=== PATIENT | female | born 1970 | race Caucasian/White ===

== ENCOUNTER 2017-01-24 20:29 | Observation (INO) | payer MEDICARE ==
[2017-01-24] MEDS ORDERED: MORPHINE SULFATE 4 MG/ML SYRINGE IV STA (20:37)
[2017-01-24] MEDS ORDERED: SODIUM CHLORIDE 0.9% 1,000 ML IV STA ×2 (20:37)
--- NOTE | 2017-01-24 20:37 | ED ---
General Adult HPI - General Stated complaint: Chest Pain Time Seen by Provider: 01/24/17 20:32 Source: RN notes reviewed, old records reviewed - History of Present Illness Initial comments: This is a 46-year-old female here today for evaluation regards to chest pain. Severe chest pain that she woke up with this morning he has been persistent throughout the day. Patient takes nothing of her chest pain. Patient does have significant cardiac disease history has history of heart attack and stents. Patient states pain feels just like prior heart attack. No recent travel history no sick contacts. Patient is new to the area and has no prior hospitalizations or evaluations here - Related Data Home Medications Medication Instructions Recorded Confirmed Insulin Glargine,Hum.rec.anlog 55 unit SQ BID 01/25/17 01/25/17 [Lantus Solostar] metFORMIN HCL 1,000 mg PO BID 01/25/17 01/25/17 Allergies Allergy/AdvReac Type Severity Reaction Status Date / Time prochlorperazine Allergy Hallucinati Verified 01/25/17 11:59 [From Compazine] ons Sulfa (Sulfonamide Allergy Rash/Hives Verified 01/25/17 11:59 Antibiotics) Review of Systems ROS Statement: Those systems with pertinent positive or pertinent negative responses have been documented in the HPI. ROS Other: All systems not noted in ROS Statement are negative. Past Medical History - Past Family History Mother Additional Family Medical History / Comment(s): Mother at age 64 with Stage4 pancreatic cancer. Father Family Medical History: Diabetes Mellitus General Exam General appearance: alert, in no apparent distress, anxious, in distress, obese Head exam: Present: atraumatic, normocephalic, normal inspection Eye exam: Present: normal appearance, PERRL, EOMI. Absent: scleral icterus, conjunctival injection, periorbital swelling ENT exam: Present: normal exam, mucous membranes moist Neck exam: Present: normal inspection. Absent: tenderness, meningismus, lymphadenopathy Respiratory exam: Present: normal lung sounds bilaterally. Absent: respiratory distress, wheezes, rales, rhonchi, stridor Cardiovascular Exam: Present: normal rhythm, tachycardia, normal heart sounds. Absent: systolic murmur, diastolic murmur, rubs, gallop, clicks GI/Abdominal exam: Present: soft, normal bowel sounds. Absent: distended, tenderness, guarding, rebound, rigid Extremities exam: Present: normal inspection, full ROM, normal capillary refill. Absent: tenderness, pedal edema, joint swelling, calf tenderness Back exam: Present: normal inspection Neurological exam: Present: alert, oriented X3, CN II-XII intact Psychiatric exam: Present: normal affect, normal mood Skin exam: Present: warm, dry, intact, normal color. Absent: rash Course Vital Signs 01/24/17 01/24/17 01/24/17 20:31 21:51 22:24 Temperature 99 F 97.0 F L Pulse Rate 107 H 88 Pulse Rate [ 83 Pulse Oximetery ] Respiratory 20 18 16 Rate Blood Pressure 175/68 113/56 Blood Pressure 157/98 [Right Arm] O2 Sat by Pulse 97 97 99 Oximetry - Reevaluation(s) Reevaluation #1: Patient continuing to have chest pain and asking for pain medication EKG Findings - EKG Comments: EKG Findings:: EKG shows sinus tachycardia rate of 111, PA 150, QRS 78, QTC 462. repeat. EKG shows normal sinus rhythm rate of 87, PA 126, QRS 70, QTC 452 Medical Decision Making - Medical Decision Making 46 female tear with significant history of heart disease and coronary artery disease, patient coming in with chest pain just like prior PA, patient will be admitted for cardiac observation and evaluation, anticoagulation and pain control, currently EKG and troponin are negative - Lab Data Result diagrams: 01/25/17 02:20 01/24/17 20:35 Lab Results 01/24/17 01/24/17 01/24/17 Range/Units 20:35 20:35 20:35 WBC 15.3 H (3.8-10.6) k/uL RBC 4.37 (3.80-5.40) m/uL Hgb 14.9 (11.4-16.0) gm/dL Hct 44.9 (34.0-46.0) % MCV 102.7 H (80.0-100.0) fL MCH 34.2 (25.0-35.0) pg MCHC 33.3 (31.0-37.0) g/dL RDW 14.2 (11.5-15.5) % Plt Count 232 (150-450) k/uL Neutrophils % 60 % Lymphocytes % 30 % Monocytes % 5 % Eosinophils % 3 % Basophils % 1 % Neutrophils # 9.2 H (1.3-7.7) k/uL Lymphocytes # 4.6 (1.0-4.8) k/uL Monocytes # 0.7 (0-1.0) k/uL Eosinophils # 0.4 (0-0.7) k/uL Basophils # 0.1 (0-0.2) k/uL Macrocytosis Slight PT (9.0-12.0) sec INR (<1.2) APTT (22.0-30.0) sec Sodium 142 (137-145) mmol/L Potassium 4.6 (3.5-5.1) mmol/L Chloride 109 H (98-107) mmol/L Carbon Dioxide 22 (22-30) mmol/L Anion Gap 11 mmol/L BUN 12 (7-17) mg/dL Creatinine 0.80 (0.52-1.04) mg/dL Est GFR (MDRD) Af Amer >60 (>60 ml/min/1.73 sqM) Est GFR (MDRD) Non-Af >60 (>60 ml/min/1.73 sqM) Glucose 95 (74-99) mg/dL Plasma Lactic Acid Oliver (0.7-2.0) mmol/L Calcium 9.0 (8.4-10.2) mg/dL Phosphorus 4.3 (2.5-4.5) mg/dL Magnesium 1.6 (1.6-2.3) mg/dL Total Bilirubin 0.6 (0.2-1.3) mg/dL AST 29 (14-36) U/L ALT 21 (9-52) U/L Alkaline Phosphatase 68 (38-126) U/L Total Creatine Kinase 62 (30-135) U/L CK-MB (CK-2) 0.7 (0.0-2.4) ng/mL CK-MB (CK-2) Rel Index 1.1 Troponin I <0.012 (0.000-0.034) ng/mL Total Protein 8.0 (6.3-8.2) g/dL Albumin 4.1 (3.5-5.0) g/dL TSH 0.051 L (0.465-4.680) mIU/L Urine Color Urine Appearance (Clear) Urine pH (5.0-8.0) Ur Specific [place] (1.001-1.035) Urine Protein (Negative) Urine Glucose (UA) (Negative) Urine Ketones (Negative) Urine Blood (Negative) Urine Nitrite (Negative) Urine Bilirubin (Negative) Urine Urobilinogen (<2.0) mg/dL Ur Leukocyte Esterase (Negative) Urine RBC (0-5) /hpf Urine WBC (0-5) /hpf Ur Squamous Epith Cells (0-4) /hpf Urine Mucus (None) /hpf Urine Sperm (None) /hpf 01/24/17 01/24/17 01/24/17 Range/Units 20:35 20:36 21:20 WBC (3.8-10.6) k/uL RBC (3.80-5.40) m/uL Hgb (11.4-16.0) gm/dL Hct (34.0-46.0) % MCV (80.0-100.0) fL MCH (25.0-35.0) pg MCHC (31.0-37.0) g/dL RDW (11.5-15.5) % Plt Count (150-450) k/uL Neutrophils % % Lymphocytes % % Monocytes % % Eosinophils % % Basophils % % Neutrophils # (1.3-7.7) k/uL Lymphocytes # (1.0-4.8) k/uL Monocytes # (0-1.0) k/uL Eosinophils # (0-0.7) k/uL Basophils # (0-0.2) k/uL Macrocytosis PT 10.1 (9.0-12.0) sec INR 1.0 (<1.2) APTT 22.5 (22.0-30.0) sec Sodium (137-145) mmol/L Potassium (3.5-5.1) mmol/L Chloride (98-107) mmol/L Carbon Dioxide (22-30) mmol/L Anion Gap mmol/L BUN (7-17) mg/dL Creatinine (0.52-1.04) mg/dL Est GFR (MDRD) Af Amer (>60 ml/min/1.73 sqM) Est GFR (MDRD) Non-Af (>60 ml/min/1.73 sqM) Glucose (74-99) mg/dL Plasma Lactic Acid Oliver 1.9 (0.7-2.0) mmol/L Calcium (8.4-10.2) mg/dL Phosphorus (2.5-4.5) mg/dL Magnesium (1.6-2.3) mg/dL Total Bilirubin (0.2-1.3) mg/dL AST (14-36) U/L ALT (9-52) U/L Alkaline Phosphatase (38-126) U/L Total Creatine Kinase (30-135) U/L CK-MB (CK-2) (0.0-2.4) ng/mL CK-MB (CK-2) Rel Index Troponin I (0.000-0.034) ng/mL Total Protein (6.3-8.2) g/dL Albumin (3.5-5.0) g/dL TSH (0.465-4.680) mIU/L Urine Color Yellow Urine Appearance Cloudy H (Clear) Urine pH 5.0 (5.0-8.0) Ur Specific [place] 1.008 (1.001-1.035) Urine Protein Negative (Negative) Urine Glucose (UA) Negative (Negative) Urine Ketones Negative (Negative) Urine Blood Trace H (Negative) Urine Nitrite Negative (Negative) Urine Bilirubin Negative (Negative) Urine Urobilinogen <2.0 (<2.0) mg/dL Ur Leukocyte Esterase Moderate H (Negative) Urine RBC 2 (0-5) /hpf Urine WBC 15 H (0-5) /hpf Ur Squamous Epith Cells 4 (0-4) /hpf Urine Mucus Rare H (None) /hpf Urine Sperm Moderate H (None) /hpf - Radiology Data Radiology results: report reviewed (Chest x-ray is negative for acute disease), image reviewed Critical Care Time Critical Care Time: Yes Total Critical Care Time: 31 Disposition Clinical Impression: Chest pain Disposition: ADMITTED IP TO THIS [facility] Condition: Undetermined
[2017-01-24 20:48] LABS: Basophils # (A) 0.1 k/uL (0-0.2); Basophils % (A) 1 %; CH 33.2; CHCM 32.4; Eosinophils # (A) 0.4 k/uL (0-0.7); Eosinophils % (A) 3 %; HCT 44.9 % (34.0-46.0); HDW 2.34; HGB 14.9 gm/dL (11.4-16.0); Luc # (Auto) 0.39; Luc % (Auto) 3; Lymphocytes # (A) 4.6 k/uL (1.0-4.8); Lymphocytes % (A) 30 %; MCH 34.2 pg (25.0-35.0); MCHC 33.3 g/dL (31.0-37.0); MCV 102.7 fL (80.0-100.0); Macrocytosis Slight; Mean Platelet Volume 8.8; Monocytes # (A) 0.7 k/uL (0-1.0); Monocytes % (A) 5 %; Neutrophils # (A) 9.2 k/uL (1.3-7.7); Neutrophils % (A) 60 %; RBC 4.37 m/uL (3.80-5.40); RDW 14.2 % (11.5-15.5); WBC 15.3 k/uL (3.8-10.6); WBC (Perox) 15.56
[2017-01-24 20:58] LABS: Partial Thromboplastin Time 22.5 sec (22.0-30.0); Prothrombin Time 10.1 sec (9.0-12.0)
[2017-01-24 21:05] LABS: ALT 21 U/L (9-52); AST 29 U/L (14-36); Alkaline Phosphatase 68 U/L (38-126); Anion Gap 11 mmol/L; Blood Urea Nitrogen 12 mg/dL (7-17); Carbon Dioxide 22 mmol/L (22-30); Chloride 109 mmol/L (98-107); Glucose 95 mg/dL (74-99); Magnesium 1.6 mg/dL (1.6-2.3); Non-African American GFR(MDRD) >60 (>60 ml/min/1.73 sqM); Phosphorous 4.3 mg/dL (2.5-4.5); Sodium 142 mmol/L (137-145); Total Bilirubin 0.6 mg/dL (0.2-1.3)
[2017-01-24 21:08] LABS: Potassium 4.6 mmol/L (3.5-5.1)
[2017-01-24 21:12] LABS: Creatine Kinase 62 U/L (30-135)
--- NOTE | 2017-01-24 21:12 | XR ---
EXAMINATION TYPE: XR chest 2V DATE OF EXAM: 01/24/2017 COMPARISON: NONE HISTORY: Chest pain weakness TECHNIQUE: Frontal and lateral views of the chest are obtained. FINDINGS: There is no focal air space opacity, pleural effusion, or pneumothorax seen. The cardiac silhouette size is within normal limits. The osseous structures are intact. IMPRESSION: No acute cardiopulmonary process.
[2017-01-24 21:26] LABS: Creatine Kinase MB 0.7 ng/mL (0.0-2.4); Troponin I <0.012 ng/mL (0.000-0.034)
[2017-01-24 21:51] LABS: Appearance,Urine Cloudy (Clear); Bilirubin,Urine Negative (Negative); Glucose,Urine (UA) Negative (Negative); Ketones,Urine Negative (Negative); Leukocyte Esterase,Urine Moderate (Negative); Mucus,Urine Rare /hpf; Nitrite,Urine Negative (Negative); Particle Count 6480; Protein,Urine Negative (Negative); RBC,Urine 2 /hpf (0-5); Specific Gravity,Urine 1.008 (1.001-1.035); Sperm,Urine Moderate /hpf; Squamous Epithelial Cell,Urine 4 /hpf (0-4); UA Billing (MACRO vs. MICRO) MICRO; Urobilinogen,Urine <2.0 mg/dL (<2.0); WBC,Urine 15 /hpf (0-5)
[2017-01-24] MEDS ORDERED: HEPARIN SODIUM,PORCINE 5,000 UNIT/ML 1 ML VIAL IV PRN (22:06)
[2017-01-24] MEDS ORDERED: ASPIRIN 81 MG PO STA (22:06)
[2017-01-24] MEDS ORDERED: HEPARIN SODIUM,PORCINE 5,000 UNIT/ML 1 ML VIAL IV ONE (22:06)
[2017-01-24] MEDS ORDERED: HEPARIN SODIUM,PORCINE/D5W PMX 25,000 UNIT in DEXTROSE/WATER 1 500ML.BAG IV SCH (22:15)
[2017-01-24 23:04] LABS: Glucose,Whole Blood 64 mg/dL (75-99)
[2017-01-24] MEDS: NITROGLYCERIN SL TABS 0.4 MG TAB SUBLINGUAL PRN ×3 (23:25→23:39)
[2017-01-24 23:32] LABS: Glucose,Whole Blood 103 mg/dL (75-99)
[2017-01-24] MEDS: MORPHINE SULFATE 2 MG/ML SYRINGE IV PRN (23:46)
[2017-01-24] MEDS ORDERED: HYDROmorphone 1 MG/ML 1 ML SYRINGE IVP PRN (23:53)
[2017-01-25] MEDS ORDERED: INFLUENZA VACCINE (6 MOS+) 60 MCG/0.5 ML SYRINGE IM ONE (00:36)
[2017-01-25 02:54] LABS: Cholesterol 249 mg/dL (<200); HDL Cholesterol 39 mg/dL (40-60)
[2017-01-25 03:08] LABS: Creatine Kinase 52 U/L (30-135)
[2017-01-25 03:09] LABS: Mean Platelet Volume 8.4
[2017-01-25 03:22] LABS: Creatine Kinase MB 1.6 ng/mL (0.0-2.4); Troponin I <0.012 ng/mL (0.000-0.034)
[2017-01-25] MEDS ORDERED: HYDROmorphone 0.5 MG/0.5 ML SYRINGE IVP PRN (04:05)
[2017-01-25 06:11] LABS: Glucose,Whole Blood 65 mg/dL (75-99)
[2017-01-25 06:29] LABS: Glucose,Whole Blood 65 mg/dL (75-99)
[2017-01-25 06:44] LABS: Glucose,Whole Blood 61 mg/dL (75-99)
[2017-01-25 07:35] LABS: Glucose,Whole Blood 70 mg/dL (75-99)
[2017-01-25 08:34] LABS: Creatine Kinase 44 U/L (30-135)
[2017-01-25 08:48] LABS: Troponin I <0.012 ng/mL (0.000-0.034)
[2017-01-25 08:53] LABS: Creatine Kinase MB 3.2 ng/mL (0.0-2.4)
[2017-01-25] MEDS ORDERED: ASPIRIN 325 MG TAB PO SCH (09:00)
[2017-01-25] MEDS ORDERED: LEVOFLOXACIN 500MG-D5W PMX 500 MG in DEXTROSE/WATER 1 100ML.BAG IVPB SCH (10:00)
[2017-01-25] MEDS: ONDANSETRON 4 MG/2 ML VIAL IVP PRN (10:04)
[2017-01-25] MEDS ORDERED: PANTOPRAZOLE 40 MG/10 ML VIAL IVP SCH (10:30)
--- NOTE | 2017-01-25 11:38 | P.HPIM ---
History of Present Illness This is a 46-year-old female came in with complaints of chest pain sharp in nature radiating across the chest area on and off last for a few minutes 9 x 10 in severity not associated with breathing although patient's d-dimer is negative patient appears to be congested diaphoretic when I evaluated the patient patient denied any shortness of breath fever chills patient is comparing of some nonspecific tingling and numbness in the left side of the body , because of which I'm obtaining a CAT scan of the head. Patient is nauseous has been vomiting when I evaluated the patient patient still has her gallbladder her pain in the chest area does work get worse with food. Patient denied any fever chills patient denied any dysuria patient has a symptomatically bacteriuria the for which patient will not need any antibiotics because of which levofloxacin is being discontinued at this time. Patient had history of coronary artery disease with stents placed in the past. Patient had an EKG which showed some nonspecific ST-T wave changes cardiology evaluated the patient. Review of Systems REVIEW OF SYSTEMS: CONSTITUTIONAL: No fever, no malaise, no fatigue. HEENT: No recent visual problems or hearing problems. Denied any sore throat. CARDIOVASCULAR: No , orthopnea, PND, no palpitations, no syncope. PULMONARY: No shortness of breath, no cough, no hemoptysis. GASTROINTESTINAL: No diarrhea, no nausea, no vomiting, no abdominal pain. Normoactive bowel sounds. NEUROLOGICAL: No headaches, no weakness, HEMATOLOGICAL: Denies any bleeding or petechiae. GENITOURINARY: Denies any burning micturition, frequency, or urgency. MUSCULOSKELETAL/RHEUMATOLOGICAL: Denies any joint pain, swelling, or any muscle pain. ENDOCRINE: Denies any polyuria or polydipsia. The rest of the 14-point review of systems is negative. Past Medical History Past Medical History: Asthma, COPD, Diabetes Mellitus, Hypertension, Myocardial Infarction ([place]), Thyroid Disorder Additional Past Medical History / Comment(s): emphysema, pt states she had thyroid cancer, had thyroid removed - 2010. Last Myocardial Infarction Date:: 2010 History of Any Multi-Drug Resistant Organisms: None Reported Past Surgical History: Appendectomy, Cholecystectomy, Heart Catheterization Additional Past Surgical History / Comment(s): back surgery, heel spur surgery Past Anesthesia/Blood Transfusion Reactions: No Reported Reaction Additional Past Anesthesia/Blood Transfusion Reaction / Comment(s): Pt states she has not had a blood transfusion Past Psychological History: No Psychological Hx Reported Smoking Status: Current every day smoker Past Alcohol Use History: None Reported Past Drug Use History: None Reported - Past Family History Mother Additional Family Medical History / Comment(s): Mother at age 64 with Stage4 pancreatic cancer. Father Family Medical History: Diabetes Mellitus Medications and Allergies Allergies Allergy/AdvReac Type Severity Reaction Status Date / Time prochlorperazine Allergy Hallucinati Verified 01/25/17 00:06 [From Compazine] ons Sulfa (Sulfonamide Allergy Rash/Hives Verified 01/25/17 00:06 Antibiotics) Physical Exam Vitals: Vital Signs Temp Pulse Pulse Resp BP BP Pulse Ox 01/25/17 08:00 96.8 F L 83 16 118/63 93 L 01/25/17 04:00 97.6 F 75 16 113/70 94 L 01/25/17 00:00 83 16 01/24/17 23:45 81 120/71 01/24/17 23:39 83 131/69 01/24/17 23:34 79 122/65 01/24/17 23:25 82 124/74 01/24/17 22:24 97.0 F L 83 16 157/98 99 01/24/17 21:51 88 18 113/56 97 01/24/17 20:31 99 F 107 H 20 175/68 97 Intake and Output 01/24/17 01/25/17 01/25/17 22:59 06:59 14:59 Intake Total 735.333 0 Balance 735.333 0 Intake: Intake, IV Titration 735.333 Amount Heparin Sodium,Porcine/ 135.333 D5w Pmx 25,000 unit In Dextrose/Water 1 500ml. bag @ 20 mls/hr IV .Q24H CYDNEY Rx#:[id number] Sodium Chloride 0.9% 1, 600 000 ml @ 100 mls/hr IV . Q10H STA Rx#:[id number] Oral 0 Other: # Voids 1 Weight 87.543 kg 89 kg PHYSICAL EXAMINATION: GENERAL: The patient is alert and oriented x3, not in any acute distress. Well developed, well nourished. Patient looks unwell and diaphoretic on exam HEENT: Pupils are round and equally reacting to light. EOMI. No scleral icterus. No conjunctival pallor. Normocephalic, atraumatic. No pharyngeal erythema. No thyromegaly. CARDIOVASCULAR: S1 and S2 present. No murmurs, rubs, or gallops. PULMONARY: Chest is clear to auscultation, no wheezing or crackles. ABDOMEN: Soft, nontender, nondistended, normoactive bowel sounds. No palpable organomegaly. MUSCULOSKELETAL: No joint swelling or deformity. EXTREMITIES: No cyanosis, clubbing, or pedal edema. NEUROLOGICAL: Gross neurological examination did not reveal any focal deficits. SKIN: No rashes. Results CBC & Chem 7: 01/25/17 02:20 01/24/17 20:35 Labs: Abnormal Lab Results - Last 24 Hours (Table) 01/24/17 01/24/17 01/24/17 Range/Units 20:35 20:35 21:20 WBC 15.3 H (3.8-10.6) k/uL MCV 102.7 H (80.0-100.0) fL Neutrophils # 9.2 H (1.3-7.7) k/uL Chloride 109 H (98-107) mmol/L POC Glucose (mg/dL) (75-99) mg/dL CK-MB (CK-2) (0.0-2.4) ng/mL Triglycerides (<150) mg/dL Cholesterol (<200) mg/dL LDL Cholesterol, Calc (0-99) mg/dL HDL Cholesterol (40-60) mg/dL TSH 0.051 L (0.465-4.680) mIU/L Urine Appearance Cloudy H (Clear) Urine Blood Trace H (Negative) Ur Leukocyte Esterase Moderate H (Negative) Urine WBC 15 H (0-5) /hpf Urine Mucus Rare H (None) /hpf Urine Sperm Moderate H (None) /hpf 01/24/17 01/24/17 01/25/17 Range/Units 23:03 23:30 02:20 WBC (3.8-10.6) k/uL MCV (80.0-100.0) fL Neutrophils # (1.3-7.7) k/uL Chloride (98-107) mmol/L POC Glucose (mg/dL) 64 L 103 H (75-99) mg/dL CK-MB (CK-2) (0.0-2.4) ng/mL Triglycerides 380 H (<150) mg/dL Cholesterol 249 H (<200) mg/dL LDL Cholesterol, Calc 134 H (0-99) mg/dL HDL Cholesterol 39 L (40-60) mg/dL TSH (0.465-4.680) mIU/L Urine Appearance (Clear) Urine Blood (Negative) Ur Leukocyte Esterase (Negative) Urine WBC (0-5) /hpf Urine Mucus (None) /hpf Urine Sperm (None) /hpf 01/25/17 01/25/17 01/25/17 Range/Units 06:07 06:27 06:41 WBC (3.8-10.6) k/uL MCV (80.0-100.0) fL Neutrophils # (1.3-7.7) k/uL Chloride (98-107) mmol/L POC Glucose (mg/dL) 65 L 65 L 61 L (75-99) mg/dL CK-MB (CK-2) (0.0-2.4) ng/mL Triglycerides (<150) mg/dL Cholesterol (<200) mg/dL LDL Cholesterol, Calc (0-99) mg/dL HDL Cholesterol (40-60) mg/dL TSH (0.465-4.680) mIU/L Urine Appearance (Clear) Urine Blood (Negative) Ur Leukocyte Esterase (Negative) Urine WBC (0-5) /hpf Urine Mucus (None) /hpf Urine Sperm (None) /hpf 01/25/17 01/25/17 Range/Units 07:02 08:02 WBC (3.8-10.6) k/uL MCV (80.0-100.0) fL Neutrophils # (1.3-7.7) k/uL Chloride (98-107) mmol/L POC Glucose (mg/dL) 70 L (75-99) mg/dL CK-MB (CK-2) 3.2 H* (0.0-2.4) ng/mL Triglycerides (<150) mg/dL Cholesterol (<200) mg/dL LDL Cholesterol, Calc (0-99) mg/dL HDL Cholesterol (40-60) mg/dL TSH (0.465-4.680) mIU/L Urine Appearance (Clear) Urine Blood (Negative) Ur Leukocyte Esterase (Negative) Urine WBC (0-5) /hpf Urine Mucus (None) /hpf Urine Sperm (None) /hpf Thrombosis Risk Factor Assmnt - Choose All That Apply Each Factor Represents 1 point: Abnormal pulmonary function (COPD), Age 41-60 years, Obesity (BMI >25) Other Risk Factors: No Other congenital or acquired thrombophilia - If yes, enter type in comment: No Thrombosis Risk Factor Assessment Total Risk Factor Score: 3 Thrombosis Risk Factor Assessment Level: Moderate Risk Assessment and Plan Plan: #1 chest pain: Sharp in nature rule out acute coronary syndromes and unstable angina, cardiology is a valid in the patient patient may have gastritis with nausea and vomiting patient will be started on protonic. #2 tingling and numbness in the left side of the body: We will rule out TIA at a stroke starting with the CAT scan of the head without contrast will do further evaluation as density patient already received aspirin. #3 hyperlipidemia #4 hypertension #5 COPD without any acute exacerbation #6 thyroid disorder TSH is low will obtain T4 level #7 a symptomatic bacteriuria for which patient will not need any antibiotics although patient does have leukocytosis Will repeat WBC count tomorrow. #8 rule out pulmonary embolism with a d-dimer which was negative
--- NOTE | 2017-01-25 11:41 | CONS ---
CONSULTATION Mrs Birch is a 46-year-old female who is visiting from [place] and admitted through the emergency room with symptoms of chest discomfort. The discomfort occurred yesterday while at rest, watching TV and lasted throughout the day without any associated dyspnea or dizziness. The patient is average in her exercise tolerance, has no exertional chest pain. According her in 2010 she underwent thyroidectomy for thyroid cancer and 2 days after she had a right-sided weakness with a stroke and a myocardial infarction. Although she is not sure she had a cardiac catheterization and she does not recall any further cardiac workup. She has been stable from the cardiac standpoint according to her. She has no significant chest pain with activity. She smokes on a regular basis, but according to her breathing is stable. She still has some weakness on the right side. She denies any PND, orthopnea, or peripheral edema, she has some dizziness. No palpitation or syncope. Her coronary risk factors are remarkable for smoking, hypertension, hyperlipidemia, and diabetes. REVIEW OF SYSTEMS: Respiratory system: She has history of chronic obstructive lung disease. No recent wheezing. GI system: No recent GI bleed. No peptic ulcer disease. system: No dysuria or hematuria. Nervous system: She has a history of a stroke, but no seizure. PHYSICAL EXAMINATION: She is a 46-year-old female, alert, oriented, in no apparent distress. Blood pressure 118/60 with a heart in the 80s. HEAD: Normocephalic. Eyes: Sclerae anicteric. Neck: Good upstroke. No bruit. No jugular distention. LUNGS: Clear to auscultation. Heart: Regular rate and rhythm. S1, S2. No S3 with a systolic ejection murmur 2/6 heard at the left base. No diastolic murmur. No rub. ABDOMEN: Soft, nontender. Positive bowel sounds. No organomegaly. EXTREMITIES: No edema. Intact pulses. LAB DATA: Lab data revealed a BUN and creatinine of 12 and 0.8, potassium 4.6, troponin less than 0.012 for 2 samples. Cholesterol 249, LDL of 134, TSH of 0.051, hemoglobin of 14.9, white blood cell of 15.3. EKG revealed a sinus mechanism, normal axis and intervals. No acute changes. Chest x- ray revealed no infiltrate. IMPRESSION: 1. Chest discomfort of unclear etiology, has atypical features for ischemic heart disease in a patient with multiple risk factors, prior history of myocardial infarction, although details not available to me. 2. History of hypertension. 3. Hyperlipidemia. 4. Diabetes mellitus. 5. Chronic tobacco use. RECOMMENDATION: I will stop her heparin. I will add a statin as well as an RANJEET inhibitor to her regimen. I will check her hemoglobin A1c. Her blood sugar here has been stable at this time. I will obtain echocardiogram Doppler as well as dobutamine stress echocardiogram and depending on those findings, further recommendation will be made. I will try to obtain the prior workup that was done at [place], to further evaluate her status and guide her treatment. Thank you for this consult. We will follow with you. NATHALIAL / IJN: [id number] /
[2017-01-25 11:52] LABS: Glucose,Whole Blood 87 mg/dL (75-99)
--- NOTE | 2017-01-25 12:26 | CT ---
EXAMINATION TYPE: CT brain wo con DATE OF EXAM: 01/25/2017 COMPARISON: NONE HISTORY: BOYD CT DLP: 1049.1 mGycm Automated exposure control for dose reduction was used. FINDINGS: Central structures are midline. There is no evidence of hydrocephalus. No acute focal lesion, mass ef fect or midline shift is seen. I do not see evidence of intracranial blood. There is some diffuse per iventricular white matter lucency. This may be on the basis of chronic white matter ischemic change. Visualized portions of the paranasal sinuses and mastoids are clear. IMPRESSION: 1. NO ACUTE INTRACRANIAL ABNORMALITY. 2. I CANNOT EXCLUDE SOME CHRONIC WHITE MATTER ISCHEMIC CHANGE.
[2017-01-25] MEDS: ATORVASTATIN 20 MG TAB PO SCH (12:43)
[2017-01-25] MEDS: MORPHINE SULFATE 2 MG/ML SYRINGE IV PRN ×2 (12:48→20:28)
[2017-01-25 14:24] LABS: Hemoglobin A1C 6.1 % (4.2-6.1)
[2017-01-25 17:25] LABS: Glucose,Whole Blood 74 mg/dL (75-99)
[2017-01-25 20:55] LABS: Glucose,Whole Blood 87 mg/dL (75-99)
[2017-01-26] MEDS: ONDANSETRON 4 MG/2 ML VIAL IVP PRN ×2 (00:58→08:18)
[2017-01-26] MEDS: NITROGLYCERIN SL TABS 0.4 MG TAB SUBLINGUAL PRN (03:11)
[2017-01-26 03:22] LABS: Glucose,Whole Blood 107 mg/dL (75-99)
[2017-01-26] MEDS ORDERED: DOBUTamine DRIP for NUC MED 500 MG in DEXTROSE/WATER 1 250ML.BAG IV ONE (06:00)
[2017-01-26 06:06] LABS: Glucose,Whole Blood 103 mg/dL (75-99)
[2017-01-26 06:41] LABS: CH 33.2; CHCM 31.2; HCT 44.3 % (34.0-46.0); MCH 33.8 pg (25.0-35.0); MCHC 31.6 g/dL (31.0-37.0); MCV 106.8 fL (80.0-100.0); Macrocytosis Moderate; Mean Platelet Volume 8.1; RBC 4.14 m/uL (3.80-5.40); WBC 8.9 k/uL (3.8-10.6)
[2017-01-26 07:21] LABS: Anion Gap 7 mmol/L; Blood Urea Nitrogen 8 mg/dL (7-17); Calcium 8.7 mg/dL (8.4-10.2); Carbon Dioxide 26 mmol/L (22-30); Chloride 105 mmol/L (98-107); Glucose 103 mg/dL (74-99); Non-African American GFR(MDRD) >60 (>60 ml/min/1.73 sqM); Potassium 4.5 mmol/L (3.5-5.1); Sodium 138 mmol/L (137-145)
[2017-01-26] MEDS: MORPHINE SULFATE 2 MG/ML SYRINGE IV PRN ×5 (08:17→23:31)
--- NOTE | 2017-01-26 10:00 | PN ---
PROGRESS NOTE Mrs. Birch is a 46-year-old female with a history of diabetes who presented with symptoms of chest pain, numbness, fatigue. She still has some pain on and off, not clearly related to physical activity. She has some generalized numbness. No dizziness. No palpitation. No syncope. She continues to be at this time on aspirin once a day, Lipitor 20 mg daily, lisinopril 5 mg daily. PHYSICAL EXAMINATION: Blood pressure 123/80 with the heart rate in 90s. LUNGS: Clear. HEART: Regular rate and rhythm. S1, S2. No S3. No rub. ABDOMEN: Soft, nontender. EXTREMITIES: No edema. LAB DATA: Lab data revealed BUN and creatinine of 8 and 0.75. Potassium 4.5. Hemoglobin of 14. EKG revealed sinus mechanism with no acute changes. IMPRESSION: 1. Chest discomfort atypical for ischemic heart disease, probably noncardiac. 2. History of stroke. RECOMMENDATION: Will proceed with a dobutamine stress echocardiogram as planned and depending on those findings, further recommendations will be made from the cardiac standpoint, I am awaiting the workup that was done in [place]. MMODL / IJN: [id number] /
--- NOTE | 2017-01-26 10:55 | ECHOS ---
Referral Reason:chest pain MEASUREMENTS -------- HEIGHT: 170.2 cm WEIGHT: 88.0 kg BP: 133/68 IVSd: 1.3 cm (0.6 - 1.1) LVIDd: 3.4 cm (3.9 - 5.3) LVPWd: 1.5 cm (0.6 - 1.1) IVSs: 1.6 cm LVIDs: 2.4 cm LVPWs: 2.0 cm Ao Diam: 2.9 cm (2.0 - 3.7) AV Cusp: 2.0 cm (1.5 - 2.6) LA Diam: 3.4 cm (2.7 - 3.8) MV EXCURSION: 13.883 mm (> 18.000) MV EF SLOPE: 78 mm/s (70 - 150) EPSS: 0.8 cm MV E Omar: 0.85 m/s MV DecT: 191 ms MV A Omar: 0.82 m/s MV E/A Ratio: 1.03 RAP: 5.00 mmHg RVSP: 13.66 mmHg FINDINGS -------- Sinus rhythm. This was a technically good study. The left ventricular size is normal. There is moderate concentric left ventricular hypertrophy. Overall left ventricular systolic function is normal with, an EF between 55 - 60 %. The right ventricle is normal in size and function. The left atrium is normal in size. The right atrium is normal in size. The aortic valve is trileaflet, and appears structurally normal. No aortic stenosis or regurgitation. There is trace mitral regurgitation. Trace tricuspid regurgitation present. The right ventricular systolic pressure, as measured by Doppler, is 13.66mmHg. Pulmonic valve appears structurally normal. The aortic root size is normal. The pericardium is normal. CONCLUSIONS -------- 1. Sinus rhythm. 2. There is trace mitral regurgitation. 3. Trace tricuspid regurgitation present. 4. The right ventricular systolic pressure, as measured by Doppler, is 13.66mmHg. 5. Pulmonic valve appears structurally normal. 6. The aortic root size is normal. 7. The pericardium is normal. 8. This was a technically good study. 9. The left ventricular size is normal. 10. There is moderate concentric left ventricular hypertrophy. 11. Overall left ventricular systolic function is normal with, an EF between 55 - 60 %. 12. The right ventricle is normal in size and function. 13. The left atrium is normal in size. 14. The right atrium is normal in size. 15. The aortic valve is trileaflet, and appears structurally normal. No aortic stenosis or regurgitation. ABRASIVE BAND WINDER: Jelena Martinez RDCS
[2017-01-26] MEDS: ATORVASTATIN 20 MG TAB PO SCH (11:13)
[2017-01-26] MEDS: PANTOPRAZOLE 40 MG TABLET PO SCH (11:13)
[2017-01-26] MEDS: ASPIRIN 81 MG PO SCH (11:13)
[2017-01-26] MEDS: LISINOPRIL 5 MG TAB PO SCH (11:13)
[2017-01-26 12:11] LABS: Glucose,Whole Blood 104 mg/dL (75-99)
[2017-01-26 14:19] VITALS: BMI 30.4
--- NOTE | 2017-01-26 14:38 | P.PN ---
Subjective patient was admitted for chest pain sharp in nature probably due to gastritis improved nausea vomiting with Prilosec and patient declined to go for dobutamine stress test today and cardiology will reevaluate tomorrow after that probably patient can be discharged if stresses is negative. Regarding her continuing and numbness in the left side she completely denied such symptoms today CAT scan of the head is negative I do not believe any further workup is necessary at this point of time patient was discharged on aspirin. Objective - Vital Signs Vital signs: Vital Signs Temp 98 F 01/26/17 11:08 Pulse 93 01/26/17 11:08 Resp 18 01/26/17 11:08 BP 138/59 01/26/17 11:08 Pulse Ox 94 L 01/26/17 11:08 Intake & Output 01/25/17 01/26/17 01/26/17 18:59 06:59 18:59 Intake Total 240 100 Balance 240 100 Weight 88.2 kg 88.2 kg Intake: IV 60 Sodium Chloride 0.9% 1, 60 000 ml @ 999 mls/hr IV . Q1H1M STA Rx#:[id number] Oral 180 100 Other: # Voids 2 - Exam PHYSICAL EXAMINATION: GENERAL: The patient is alert and oriented x3, not in any acute distress. Well developed, well nourished. HEENT: Pupils are round and equally reacting to light. EOMI. No scleral icterus. No conjunctival pallor. Normocephalic, atraumatic. No pharyngeal erythema. No thyromegaly. patient does have some basilar congestion CARDIOVASCULAR: S1 and S2 present. No murmurs, rubs, or gallops. PULMONARY: Chest is clear to auscultation, no wheezing or crackles. ABDOMEN: Soft, nontender, nondistended, normoactive bowel sounds. No palpable organomegaly. MUSCULOSKELETAL: No joint swelling or deformity. EXTREMITIES: No cyanosis, clubbing, or pedal edema. NEUROLOGICAL: Gross neurological examination did not reveal any focal deficits. SKIN: No rashes. - Labs CBC & Chem 7: 01/26/17 06:26 01/26/17 06:26 Labs: Abnormal Lab Results - Last 24 Hours (Table) 01/25/17 01/26/17 01/26/17 Range/Units 16:48 03:21 06:04 MCV (80.0-100.0) fL Glucose (74-99) mg/dL POC Glucose (mg/dL) 74 L 107 H 103 H (75-99) mg/dL 01/26/17 01/26/17 01/26/17 Range/Units 06:26 06:26 11:59 MCV 106.8 H (80.0-100.0) fL Glucose 103 H (74-99) mg/dL POC Glucose (mg/dL) 104 H (75-99) mg/dL Microbiology - Last 24 Hours (Table) 01/24/17 21:20 Urine Culture - Final Urine,Voided Assessment and Plan Plan: #1 chest pain: Sharp in nature rule out acute coronary syndromes and unstable angina, cardiology is according to opiate an echo tomorrow patient may have gastritis with nausea and vomiting patient will be started on protonic. #2 tingling and numbness in the left side of the body: denies a symptoms today #3 hyperlipidemia #4 hypertension #5 COPD without any acute exacerbation #6 thyroid disorder TSH is low will obtain T4 level #7 a symptomatic bacteriuria for which patient will not need any antibiotics . Patient does not have any leukocytosis anymore. #8 rule out pulmonary embolism with a d-dimer which was negative #9 ALLERGIC sinusitis
[2017-01-26 17:00] LABS: Glucose,Whole Blood 101 mg/dL (75-99)
[2017-01-26 20:05] LABS: Glucose,Whole Blood 175 mg/dL (75-99)
[2017-01-26] MEDS ORDERED: IPRATROPIUM 0.5 MG/2.5 ML NEBU INHALATION SCH (21:00)
[2017-01-27 06:55] LABS: Glucose,Whole Blood 123 mg/dL (75-99)
[2017-01-27] MEDS ORDERED: DOBUTamine DRIP for NUC MED 500 MG in DEXTROSE/WATER 1 250ML.BAG IV ONE (08:31)
[2017-01-27] MEDS: ASPIRIN 81 MG PO SCH (11:16)
[2017-01-27] MEDS: ATORVASTATIN 20 MG TAB PO SCH (11:16)
[2017-01-27] MEDS: LISINOPRIL 5 MG TAB PO SCH (11:16)
[2017-01-27] MEDS: PANTOPRAZOLE 40 MG TABLET PO SCH (11:16)
[2017-01-27 11:55] LABS: Glucose,Whole Blood 134 mg/dL (75-99)
--- NOTE | 2017-01-27 12:10 | ECHOS ---
STRESS ECHOCARDIOGRAM DATE OF SERVICE: 01/27/2017 DOBUTAMINE STRESS ECHO MEDICATIONS:: BASELINE HEART RATE: 93 BASELINE BLOOD PRESSURE: 125/70 MAXIMUM HEART RATE: 149 MAXIMUM BLOOD PRESSURE: 178/86 85% MPHR: 149 100% MPHR: 175 METS: MAXIMUM STAGE REACHED: TOTAL EXERCISE TIME: INDICATIONS: Chest pain. CLINICAL INFORMATION: Baseline EKG shows sinus rhythm, normal axis, normal intervals. The patient was given intravenous dobutamine over a period of 7 minutes achieving 85% of predicted maximal heart rate without chest pain or without diagnostic ST-segment depression. The patient complained of chest discomfort throughout the study without any EKG changes. Baseline echo shows normal left ventricular size wall motion systolic function. Post dobutamine infusion, there is normal hyperdynamic response to all segments of myocardium noted. CONCLUSIONS: 1. Negative stress test by EKG criteria. 2. Negative dobutamine echo. [place] / YENIN: [id number] /
[2017-01-27 12:23] VITALS: BP 115/56; PULSE 92; RESP 18; TEMP 97.6
--- NOTE | 2017-01-27 13:45 | P.PN ---
Subjective Progress Note Date: 01/27/17 Mrs. Birch is a 46-year-old female history of diabetes who presented with symptoms of chest pain, numbness, fatigue and nausea or vomiting. Upon examination today she is seen sleeping comfortably in bed in no acute distress. She states she has had some pain off and on through the night but denies any ongoing nausea or vomiting. She denies shortness of breath, dizziness, palpitations or diaphoresis. Her current cardiac medications include aspirin 81 mg daily. She is a current daily smoker. Blood pressure this morning 95/48 with a heart rate of 85. Telemetry tracings indicate no arrhythmia sinus mechanism. Objective - Vital Signs Vital signs: Vital Signs Temp 98.1 F 01/27/17 08:00 Pulse 85 01/27/17 08:00 Resp 17 01/27/17 08:00 BP 95/48 01/27/17 08:00 Pulse Ox 92 L 01/27/17 08:00 Intake & Output 01/26/17 01/27/17 01/27/17 18:59 06:59 18:59 Intake Total 240 500 Balance 240 500 Weight 88.2 kg Intake: Oral 240 500 Other: Voiding Method Toilet - Exam GENERAL: Well-appearing, well-nourished and in no acute distress. NECK: Supple without JVD or thyromegaly. LUNGS: Breath sounds clear to auscultation bilaterally. Respiration equal and unlabored. No wheezes, rales or rhonchi. HEART: Regular rate and rhythm without murmurs, rubs or gallops. S1 and S2 heard. EXTREMITIES: Normal range of motion, no edema. No clubbing or cyanosis. Peripheral pulses intact and strong. - Labs CBC & Chem 7: 01/27/17 06:32 01/26/17 06:26 Labs: Abnormal Lab Results - Last 24 Hours (Table) 01/25/17 01/26/17 01/26/17 Range/Units 20:37 11:59 16:58 Plt Count (150-450) k/uL POC Glucose (mg/dL) 104 H 101 H (75-99) mg/dL Urine Opiates Screen Positive H (Negative) ng/mL 01/26/17 01/27/17 01/27/17 Range/Units 20:03 06:32 06:53 Plt Count 147 L (150-450) k/uL POC Glucose (mg/dL) 175 H 123 H (75-99) mg/dL Urine Opiates Screen (Negative) ng/mL Microbiology - Last 24 Hours (Table) 01/24/17 21:20 Urine Culture - Final Urine,Voided Assessment and Plan Plan: ASSESSMENT 1. Chest pain, atypical most likely noncardiac in nature 2. Diabetes mellitus PLAN We will proceed with a dobutamine stress echocardiogram to rule out acute coronary event. If the stress test is negative she is stable for discharge home from cardiac perspective. She can follow up with Dr. Reed as an outpatient in 2-4 weeks. The above impression and plan of care have been discussed and directed by the signing physician. Esther Devlin, nurse practitioner, acting as scribe for signing physician.
--- NOTE | 2017-01-27 15:23 | P.DS ---
Providers Date of admission: 01/24/17 22:06 Attending physician: Vicki Rincon Consults: 01/24/17 22:06 Consult Physician Urgent Consulting Provider: Michelle Bucio Consult Reason/Comments: cp Do you want consulting provider notified?: Yes Primary care physician: Stated None Hospital Course: Patient underwent stress test which was negative. Patient is being discharged today please refer to my dictation of discharge summary from yesterday for further details. PHYSICAL EXAMINATION: GENERAL: The patient is alert and oriented x3, not in any acute distress. Well developed, well nourished. HEENT: Pupils are round and equally reacting to light. EOMI. No scleral icterus. No conjunctival pallor. Normocephalic, atraumatic. No pharyngeal erythema. No thyromegaly. CARDIOVASCULAR: S1 and S2 present. No murmurs, rubs, or gallops. PULMONARY: Chest is clear to auscultation, no wheezing or crackles. ABDOMEN: Soft, nontender, nondistended, normoactive bowel sounds. No palpable organomegaly. MUSCULOSKELETAL: No joint swelling or deformity. EXTREMITIES: No cyanosis, clubbing, or pedal edema. NEUROLOGICAL: Gross neurological examination did not reveal any focal deficits. SKIN: No rashes. Patient Condition at Discharge: Undetermined Plan - Discharge Summary New Discharge Prescriptions: New Omeprazole [PriLOSEC] 40 mg PO AC-BRKFST #14 capsule. Aspirin 81 mg PO DAILY #30 chewable No Action metFORMIN HCL 1,000 mg PO BID Insulin Glargine,Hum.rec.anlog [Lantus Solostar] 55 unit SQ BID Tiotropium 18 Mcg/Puff [Spiriva] 1 cap INHALATION DAILY Discharge Medication List Insulin Glargine,Hum.rec.anlog [Lantus Solostar] 55 unit SQ BID 01/25/17 [ History] metFORMIN HCL 1,000 mg PO BID 01/25/17 [History] Aspirin 81 mg PO DAILY #30 chewable 01/26/17 [Rx] Omeprazole [PriLOSEC] 40 mg PO AC-BRKFST #14 capsule. 01/26/17 [Rx] Tiotropium 18 Mcg/Puff [Spiriva] 1 cap INHALATION DAILY 01/26/17 [History] Follow up Appointment(s)/Referral(s): Danny Reed MD [STAFF PHYSICIAN] - 2 Weeks None,Stated [Primary Care Provider] - 1-2 days Patient Instructions/Handouts: Chest Pain (GEN) Discharge Disposition: HOME SELF-CARE
== END 2017-01-27 14:25 | disposition home or self-care (01) ==
LOC: EC 20:29 → 6SEL 22:06 → 3OBS 01-26 09:38
PROVIDERS: ADMIT Hospitalist; ATTEND Hospitalist
DX: R07.89 Other chest pain (principal); I25.2 Old myocardial infarction; J30.9 Allergic rhinitis, unspecified; E89.0 Postprocedural hypothyroidism; E66.9 Obesity, unspecified; R82.71 Bacteriuria; E11.9 Type 2 diabetes mellitus without complications; E78.5 Hyperlipidemia, unspecified; I10 Essential (primary) hypertension; F17.200 Nicotine dependence, unspecified, uncomplicated; I69.351 Hemiplegia and hemiparesis following cerebral infarction affecting right dominant side; J44.9 Chronic obstructive pulmonary disease, unspecified; I25.10 Atherosclerotic heart disease of native coronary artery without angina pectoris; Z95.5 Presence of coronary angioplasty implant and graft; Z79.4 Long term (current) use of insulin; Z88.2 Allergy status to sulfonamides; Z88.8 Allergy status to other drugs, medicaments and biological substances; Z85.850 Personal history of malignant neoplasm of thyroid; Z68.30 Body mass index [BMI] 30.0-30.9, adult; Z79.82 Long term (current) use of aspirin; Z23 Encounter for immunization
CPT/HCPCS: 96366 ×2; 96375 ×2; 96376 ×5; 96361; 96365; 99291; 36415; 93005; 93017; 93306; 93350; 85379; 84439; 80061; 80053; 80048; 83036; 82550 ×2; 82553 ×2; 83605; 83735; 84100; 84443; 84484 ×2; 85025; 85027; 85049 ×3; 85610; 85730 ×2; 81001; 80306; 87086; 71020; 70450; 90686; G0378 ×4; G0008; J1250; J2270 ×4; J1644 ×3; J2405 ×2; J1170 ×2; C9113